=== PATIENT | male | born 1960 | race Caucasian/White ===

== ENCOUNTER → 2017-01-27 | Outpatient (CLI) | payer BC | LOC: US 10:35 | DX: G45.9 Transient cerebral ischemic attack, unspecified (principal); I65.23 Occlusion and stenosis of bilateral carotid arteries | CPT/HCPCS: 93880 ==

== ENCOUNTER → 2021-12-13 | Outpatient (CLI) | payer OTHER ==
[~2021-12-13] MED LIST: DICLOFENAC SODI50 MG PO; HYDROXYZINE HCL50 MG PO; LANSOPRAZOLE30 MG PO; LEVAQUIN500 MG PO; MEDROL4 MG PO; METHOCARBAMOL750 MG PO; METOPROLOL SUCC25 MG PO; NEURONTIN 300300 MG PO; PLAVIX 75 MG TA75 MG PO; PROAIR HFA8.5 GM INH; SEROQUEL300 MG PO; SPIRIVA18 MCG INH; SYMBICORT 160-1 INHA INH; TEGRETOL 200 M200 MG PO; VIAGRA100 MG PO; VITAMIN D31000 UNI1 PO; ZOCOR80 MG PO
== END ==
LOC: LAB 12:01
DX: U07.1 COVID-19 (principal); R05.9 Cough, unspecified; R50.9 Fever, unspecified
CPT/HCPCS: 0241U

== ENCOUNTER → 2022-06-14 | Outpatient (CLI) | payer OTHER | LOC: KOH-I 05-20 11:30 | DX: F17.210 Nicotine dependence, cigarettes, uncomplicated (principal) | CPT/HCPCS: 71271 ==